=== PATIENT | female | born 2000 | race Caucasian/White ===

== ENCOUNTER 2025-02-24 15:12 | Inpatient (IN) | payer MEDICAID, OTHER ==
[~2025-02-24] VITALS: Ht 154.9 cm; Wt 71.4 kg
[2025-02-24] MEDS: LEVETIRACETAM 1000MG PREMIX 100 ML IV ONE (15:48)
[2025-02-24 16:12] LABS: BASOPHILS % 0.4 % (0.0-2.0); EOSINOPHILS % 1.0 % (0.0-5.0); HEMATOCRIT. 43.4 % (36.0-48.0); HEMOGLOBIN. 14.7 g/dL (12.0-16.0); LYMPHOCYTES % 16.5 % (20.0-50.0); MEAN PLATELET VOLUME 7.5 fl (7.4-10.4); MONOCYTES % 4.9 % (2.0-8.0); NEUTROPHILS % 77.2 % (40.0-76.0); PLATELET 335 x1000/uL (130-400); RED BLOOD CELL COUNT 4.73 mill/uL (4.2-5.4); RED CELL DISTRIBUTION WIDTH 12.8 % (11.6-14.6)
[2025-02-24 16:21] VITALS: O2SAT 98
[2025-02-24] MEDS: MIDAZOLAM HCL 2 MG/2 ML VIAL IV ONE (16:21)
[2025-02-24 16:28] LABS: CREATININE 1.0 mg/dL (0.6-1.0); ETHANOL BLOOD < 10 mg/dL (<10); UREA NITROGEN BLOOD 12 mg/dL (9-23)
[2025-02-24 16:30] LABS: ASPARTATE AMINOTRANSFERASE 47 IU/L (<34); BILIRUBIN DIRECT < 0.1 mg/dL (<=3.0); BILIRUBIN TOTAL 0.4 mg/dL (0.1-1.0); PROTEIN TOTAL 6.2 g/dL (6.0-8.3)
[2025-02-24 16:37] LABS: HCG SCREEN NEGATIVE
[2025-02-24] MEDS: LAMOTRIGINE 150MG TABLET PO SCH (18:34)
[2025-02-24 19:00] VITALS: BP 100/64; PULSE 82; RESP 16; TEMP 36.9184
[2025-02-24 20:00] VITALS: BP 123/69; PULSE 80; RESP 18; TEMP 36.4; O2SAT 98
[2025-02-24] MEDS ORDERED: IPRATROPIUM/ALBUTEROL 0.5-3(2.5)MG/3ML NEB HHN PRN (20:30)
[2025-02-24] MEDS ORDERED: DEXTROSE 50% WATER 50ML SYRINGE IV PRN (20:30)
[2025-02-24] MEDS ORDERED: CLONIDINE 0.1MG TABLET PO PRN (20:30)
[2025-02-24] MEDS ORDERED: ACETAMINOPHEN 325MG TABLET PO PRN (20:30)
[2025-02-24] MEDS: BLOOD SUGAR DIAGNOSTIC STRIP TEST SCH (21:00)
[2025-02-24] MEDS: ACETAMINOPHEN 325MG TABLET PO PRN (21:02)
[2025-02-24] MEDS: LEVETIRACETAM 1000MG PREMIX 100 ML IV SCH (23:12)
[2025-02-24] MEDS: SODIUM CHLORIDE 0.9% 1,000 ML IV SCH (23:12)
[2025-02-24] MEDS: ENOXAPARIN 40MG/0.4ML SYR SUBCUT SCH (23:13)
[2025-02-24 23:40] LABS: PHOSPHORUS 1.2 mg/dL (2.5-4.9)
[2025-02-25] VITALS: BP 123/69; PULSE 70; RESP 18; TEMP 36.4; O2SAT 98
[2025-02-25] MEDS ORDERED: LAMO150T5 PO (00:47)
[2025-02-25 04:00] VITALS: BP 102/62; PULSE 68; RESP 18; TEMP 36.4; O2SAT 99
[2025-02-25] MEDS: POTASSIUM PHOSPHATE 15 MMOL in DEXT 5% WATER 245 ML IV NR (07:00)
[2025-02-25 07:13] LABS: CLARITY URINE CLEAR (CLEAR); COLOR URINE YELLOW (YELLOW); GLUCOSE URINE NEGATIVE (NEGATIVE); KETONES URINE NEGATIVE (NEGATIVE); LEUKOCYTE ESTERASE URINE NEGATIVE (NEGATIVE); NITRITE URINE NEGATIVE (NEGATIVE); OCCULT BLOOD URINE NEGATIVE (NEGATIVE); PH URINE 5.5 (4.5-8.0); PROTEIN URINE 1+ (NEGATIVE); SPECIFIC GRAVITY URINE 1.008 (1.005-1.030); UROBILINOGEN URINE 0.2 E.U./dL (0.2-1.0)
[2025-02-25 07:27] LABS: LDL CHOLESTEROL 108 mg/dL (5-100); TRIGLYCERIDE 134 mg/dL (0-150); UREA NITROGEN BLOOD 16 mg/dL (9-23)
[2025-02-25 07:27] LABS: *AMPHETAMINES SCREEN URINE NEGATIVE (NEGATIVE); *BARBITURATES SCREEN URINE NEGATIVE (NEGATIVE); *BENZODIAZEPINES SCREEN URINE PRESUMPTIVE POSITIVE (NEGATIVE); *COCAINE SCREEN URINE NEGATIVE (NEGATIVE); CANNABINOID URINE SCREEN NEGATIVE (NEGATIVE); ECSTASY MDMA SCREEN URINE NEGATIVE (NEGATIVE); METHADONE URINE SCREEN NEGATIVE (NEGATIVE); OPIATES URINE SCREEN NEGATIVE (NEGATIVE); PHENCYCLIDINE URINE SCREEN NEGATIVE (NEGATIVE)
[2025-02-25 07:28] LABS: ASPARTATE AMINOTRANSFERASE 77 IU/L (<34)
[2025-02-25 07:29] LABS: BILIRUBIN TOTAL 0.5 mg/dL (0.1-1.0); PROTEIN TOTAL 5.9 g/dL (6.0-8.3)
[2025-02-25 07:30] LABS: CREATININE 1.5 mg/dL (0.6-1.0); T4 FREE 1.06 ng/dL (0.89-1.76)
[2025-02-25 08:00] VITALS: BP 120/67; PULSE 66; RESP 18; TEMP 36.7; O2SAT 99
[2025-02-25 08:34] LABS: BACTERIA URINE 1+; MUCUS URINE TRACE /lpf (< = 2+); SQUAMOUS EPITHELIAL CELL URINE 2+ /lpf (RARE/1+)
[2025-02-25 08:35] LABS: RBC URINE 0-2 /hpf (0-2); WBC URINE 0-2 /hpf (0-2)
[2025-02-25] MEDS ORDERED: LAMOTRIGINE 150MG TABLET PO SCH (09:00)
[2025-02-25] MEDS: PANTOPRAZOLE SODIUM 40 MG/VIAL IV SCH (09:27)
[2025-02-25] MEDS: ONDANSETRON HCL 4MG/2ML INJ IV PRN (10:46)
[2025-02-25] MEDS ORDERED: GADOTERATE MEGLUMINE 5 MMOL/10 ML VIAL IV ONE (11:50)
[2025-02-25 12:00] VITALS: BP 112/70; PULSE 70; RESP 18; TEMP 36.6; O2SAT 97
[2025-02-25 16:00] VITALS: BP 114/77; PULSE 57; RESP 18; TEMP 36.3; O2SAT 98
[2025-02-25 20:00] VITALS: BP 103/76; PULSE 74; RESP 18; TEMP 36.6; O2SAT 98
[2025-02-26] VITALS: BP 104/59; PULSE 77; RESP 16; TEMP 36.4; O2SAT 98
[2025-02-26 04:00] VITALS: BP 92/50; PULSE 97; RESP 19; TEMP 36.5; O2SAT 99
[2025-02-26 07:24] LABS: BASOPHILS % 0.3 % (0.0-2.0); EOSINOPHILS % 0.7 % (0.0-5.0); HEMATOCRIT. 40.1 % (36.0-48.0); HEMOGLOBIN. 13.4 g/dL (12.0-16.0); LYMPHOCYTES % 22.1 % (20.0-50.0); MEAN PLATELET VOLUME 7.8 fl (7.4-10.4); MONOCYTES % 7.5 % (2.0-8.0); NEUTROPHILS % 69.4 % (40.0-76.0); PLATELET 285 x1000/uL (130-400); RED BLOOD CELL COUNT 4.30 mill/uL (4.2-5.4); RED CELL DISTRIBUTION WIDTH 12.9 % (11.6-14.6)
[2025-02-26 07:27] LABS: CREATININE 1.5 mg/dL (0.6-1.0); UREA NITROGEN BLOOD 12.0 mg/dL (9-23)
[2025-02-26 08:00] VITALS: BP 115/68; PULSE 79; RESP 18; TEMP 36.8; O2SAT 98
[2025-02-26] MEDS: LEVETIRACETAM 500MG/5ML CUP PO SCH (09:00)
[2025-02-26] MEDS ORDERED: LEVE1000 MT (10:47)
== END 2025-02-26 11:13 | disposition home or self-care (01) | DRG 101 ==
LOC: ER 15:12 → 5WST 17:02 → EDBEDREQTM 17:20 → EDBEDREQ 17:20 → ENRESERV 18:20
PROVIDERS: ADMIT Internal Medicine; ATTEND Internal Medicine
DX: G40.909 Epilepsy, unspecified, not intractable, without status epilepticus (principal); N17.9 Acute kidney failure, unspecified; M62.82 Rhabdomyolysis; G93.89 Other specified disorders of brain; R00.0 Tachycardia, unspecified; I95.9 Hypotension, unspecified; Z79.899 Other long term (current) drug therapy
CPT/HCPCS: 36415; 70553; 71045; 80048; 80053; 80061; 80076; 80305; 80320; 81003; 82542; 82550; 82962; 83036; 83735; 84100; 84439; 84443; 84703; 85025; 93005; 99291; A9577; J1650; J1953; J2250; J2405; J2470; J3490; J7030; J7060; G0480